=== PATIENT | female | born 1985 | race Two or more races ===

== ENCOUNTER 2018-09-24 05:19 | Emergency (ER) | payer SELFPAY ==
[~2018-09-24] VITALS: Ht 160 cm; Wt 66.7 kg
[2018-09-24 05:26] VITALS: BP 112/59
[2018-09-24] MEDS ORDERED: fentaNYL PF VIAL 100 MCG/2 ML VIAL IV ONE ×2 (05:45→08:00)
[2018-09-24] MEDS ORDERED: LIDO:MAALOX 1:1 20 ML SINGLE DOSE. SWSW ONE (05:45)
[2018-09-24] MEDS ORDERED: IV NORMAL SALINE 1000ML BAG 1,000 ML IV ONE (05:45)
--- NOTE | 2018-09-24 05:47 | PHYS DOC ---
Past Medical History Past Medical History: No Pertinent History (YASMIN BAEZ MD) Alcohol Use: None Drug Use: None (YASMIN BAEZ MD) Adult General Chief Complaint Chief Complaint: ABDOMINAL PAIN HPI HPI Patient is a 33 year old female presents with abdominal pain 24 hours since yesterday morning after eating spicy food for breakfast she's had persistent sharp epigastric pain radiates diffusely to the back and both upper quadrant no fever positive vomiting positive nausea no blood in the vomit she's also been constant pain for 5 days no previous abdominal surgeries. No relief with time. (YASMIN BAEZ MD) Review of Systems Review of Systems Constitutional: Denies fever or chills [] Eyes: Denies change in visual acuity, redness, or eye pain [] HENT: Denies nasal congestion or sore throat [] Respiratory: Denies cough or shortness of breath [] Cardiovascular: No additional information not addressed in HPI [] Neurologic: Denies headache, focal weakness or sensory changes [] Endocrine: Denies polyuria or polydipsia [] All other systems were reviewed and found to be within normal limits, except as documented in this note. (YASMIN BAEZ MD) Current Medications Current Medications Current Medications Medications (Trade) Dose Ordered Sig/Hannah Start Time Stop Time Status Last Admin Dose Admin Fentanyl Citrate (Fentanyl 2ml Vial) 50 mcg 1X ONCE 09/24/18 08:00 09/24/18 08:01 DC 09/24/18 08:35 50 MCG Info (CONTRAST GIVEN -- Rx MONITORING) 1 each PRN DAILY PRN 09/24/18 08:15 09/26/18 08:14 Iohexol (Omnipaque 300 Mg/ml) 75 ml 1X ONCE 09/24/18 08:15 09/24/18 08:16 DC 09/24/18 08:15 75 ML Multi-Ingredient Mouthwash/Gargle (Gi Cocktail) 20 ml 1X ONCE 09/24/18 05:45 09/24/18 06:02 DC 09/24/18 06:00 20 ML Ondansetron HCl (Zofran) 4 mg 1X ONCE 09/24/18 06:00 09/24/18 06:02 DC 09/24/18 06:00 4 MG Sodium Chloride 1,000 ml @ 1,000 mls/hr 1X ONCE 09/24/18 05:45 09/24/18 06:44 DC 09/24/18 05:53 1,000 MLS/HR (PAL RODRIGUEZ DO) Allergies Allergies Allergies Coded Allergies Type Severity Reaction Last Updated Verified No Known Drug Allergies 09/24/18 No (PAL RODRIGUEZ DO) Physical Exam Physical Exam Constitutional: Well developed, well nourished, no acute distress, non-toxic appearance. [] HENT: Normocephalic, atraumatic, bilateral external ears normal, oropharynx moist, no oral exudates, nose normal. [] Eyes: PERRLA, EOMI, conjunctiva normal, no discharge. [] Neck: Normal range of motion, no tenderness, supple, no stridor. [] Pulmonary: Normal respiratory effort no increased work of breathing no obvious chest wall trauma Abdomen: Bowel sounds normal, soft, epigastric and right upper quadrant tenderness noted, no masses, no pulsatile masses. [] Skin: Warm, dry, no erythema, no rash. [] Back: No tenderness, no CVA tenderness. [] Extremities: No tenderness, no cyanosis, no clubbing, ROM intact, no edema. [] Neurologic: Alert and oriented X 3, normal motor function, normal sensory function, no focal deficits noted. [] Psychologic: Affect normal, judgement normal, mood normal. [] (YASMIN BAEZ MD) Current Patient Data Vital Signs Vital Signs Date Time Temp Pulse Resp B/P (MAP) Pulse Ox O2 Delivery O2 Flow Rate FiO2 09/24/18 08:35 18 Room Air 09/24/18 05:26 97.6 63 112/59 (76) 100 97.6 (PAL RODRIGUEZ DO) Lab Values Laboratory Tests Test 09/24/18 05:30 09/24/18 05:32 White Blood Count 7.9 x10^3/uL (4.0-11.0) Red Blood Count 4.72 x10^6/uL (3.50-5.40) Hemoglobin 14.4 g/dL (12.0-15.5) Hematocrit 43.0 % (36.0-47.0) Mean Corpuscular Volume 91 fL (79-100) Mean Corpuscular Hemoglobin 31 pg (25-35) Mean Corpuscular Hemoglobin Concent 34 g/dL (31-37) Red Cell Distribution Width 13.7 % (11.5-14.5) Platelet Count 236 x10^3/uL (140-400) Neutrophils (%) (Auto) 55 % (31-73) Lymphocytes (%) (Auto) 38 % (24-48) Monocytes (%) (Auto) 5 % (0-9) Eosinophils (%) (Auto) 2 % (0-3) Basophils (%) (Auto) 0 % (0-3) Neutrophils # (Auto) 4.4 x10^3uL (1.8-7.7) Lymphocytes # (Auto) 3.0 x10^3/uL (1.0-4.8) Monocytes # (Auto) 0.4 x10^3/uL (0.0-1.1) Eosinophils # (Auto) 0.2 x10^3/uL (0.0-0.7) Basophils # (Auto) 0.0 x10^3/uL (0.0-0.2) Urine Collection Type Unknown Urine Color Yellow Urine Clarity Clear Urine pH 6.0 Urine Specific Blair >=1.030 Urine Protein Negative mg/dL (NEG-TRACE) Urine Glucose (UA) Negative mg/dL (NEG) Urine Ketones (Stick) Negative mg/dL (NEG) Urine Blood Small (NEG) Urine Nitrite Negative (NEG) Urine Bilirubin Negative (NEG) Urine Urobilinogen Dipstick 0.2 mg/dL (0.2 mg/dL) Urine Leukocyte Esterase Moderate (NEG) Urine RBC 0 /HPF (0-2) Urine WBC 11-20 /HPF (0-4) Urine Squamous Epithelial Cells Many /LPF Urine Transitional Epithelial Cells Occ /LPF Urine Renal Epithelial Cells Occ /LPF Urine Bacteria Few /HPF (0-FEW) Urine Mucus Slight /LPF Sodium Level 140 mmol/L (136-145) Potassium Level 3.7 mmol/L (3.5-5.1) Chloride Level 103 mmol/L (98-107) Carbon Dioxide Level 26 mmol/L (21-32) Anion Gap 11 (6-14) Blood Urea Nitrogen 13 mg/dL (7-20) Creatinine 0.5 mg/dL (0.6-1.0) L Estimated GFR (Cockcroft-Gault) 142.1 BUN/Creatinine Ratio 26 (6-20) H Glucose Level 105 mg/dL (70-99) H Calcium Level 8.7 mg/dL (8.5-10.1) Total Bilirubin 0.4 mg/dL (0.2-1.0) Aspartate Amino Transferase (AST) 18 U/L (15-37) Alanine Aminotransferase (ALT) 24 U/L (14-59) Alkaline Phosphatase 66 U/L (46-116) Total Protein 8.0 g/dL (6.4-8.2) Albumin 4.1 g/dL (3.4-5.0) Albumin/Globulin Ratio 1.1 (1.0-1.7) Lipase 213 U/L (73-393) POC Urine HCG, Qualitative Hcg negative (Negative) Laboratory Tests 09/24/18 05:30 Laboratory Tests 09/24/18 05:30 (PAL RODRIGUEZ DO) EKG EKG [] (YASMIN BAEZ MD) Radiology/Procedures Radiology/Procedures [] (YASMIN BAEZ MD) Radiology/Procedures [facility] [address] [place], [place] [id number] IMAGING REPORT Signed PATIENT: LAY SIBLEY ACCOUNT: [id number] : 1985 LOCATION: ER AGE: 33 SEX: F EXAM STATUS: REG ER ORD. PHYSICIAN: PAL RODRIGUEZ DO REASON: ABDOMINAL PAIN PROCEDURE: CT ABD PELV W/ IV CONTRST ONLY CT ABD PELV W/ IV CONTRST ONLY Indication: Abdominal pain and vomiting for one day Technique: Postcontrast CT imaging was performed of the abdomen and pelvis, multiplanar reconstruction images submitted. No oral contrast was given. One or more of the following individualized dose reduction techniques were utilized for this examination: 1. Automated exposure control 2. Adjustment of the mA and/or kV according to patient size 3. Use of iterative reconstruction technique. Comparison: None Findings: There is no abnormality of the limited visualized lung bases. No focal abnormality is identified of the liver, spleen, pancreas, adrenal glands, gallbladder, kidneys. Both kidneys enhance, no hydronephrosis. There is retained stool variably throughout the colon. There is probable visualization of a short segment of normal appendix as seen on axial image 55 although not visualized in its entirety on this exam. There is no free air or significant free fluid. There are probable small right adnexal cysts or dominant follicles, largest about 1.4 cm. IMPRESSION: 1. At least a short segment of the normal appendix is believed to be visualized although not seen in its entirety, no free fluid. There is retained stool variably throughout the colon. There are couple of likely small cysts or dominant follicles of the right ovary. Electronically signed by: Trudy Little MD (09/24/2018 8:46 AM) [facility] DICTATED and SIGNED BY: TRUDY LITTLE MD DATE: 09/24/18 0840 [facility] [address] [place], [place] [id number] IMAGING REPORT Signed PATIENT: LAY SIBLEY ACCOUNT: [id number] : 1985 LOCATION: ER AGE: 33 SEX: F EXAM STATUS: PRE ER ORD. PHYSICIAN: YASMIN BAEZ MD REASON: epig pain, vomiting eval for gallstones PROCEDURE: ABDOMEN LTD CLINICAL HISTORY: epigastric pain COMPARISON: None available. TECHNIQUE: Limited ultrasound examination of the right upper quadrant of the abdomen was performed FINDINGS: Liver: The liver measures 13.5 cm in length in the right mid clavicular line. Hepatic echogenicity is normal and the margin is smooth. There is no focal abnormality of the liver. Portal and hepatic venous flow is confirmed with normal waveforms. Gallbladder/Biliary: The gallbladder is normal in appearance without evidence for cholelithiasis. There is no wall thickening or pericholecystic fluid. There is no pain with direct transducer pressure over the gallbladder.The common bile duct measures 0.3 cm. Visualized pancreas is unremarkable although the distal body and tail are obscured by overlying bowel gas. The right kidney measures 11 cm in bipolar length. No focal renal lesion. No hydronephrosis or hydroureter. There is no free fluid in the subhepatic space. IMPRESSION: Essentially normal sonographic survey of the right upper quadrant. Electronically signed by: Jesus Lane MD (09/24/2018 6:20 AM) [facility] DICTATED and SIGNED BY: JESUS LANE MD DATE: 09/24/18 0614 (PAL RODRIGUEZ DO) Course & Med Decision Making Course & Med Decision Making Pertinent Labs and Imaging studies reviewed. (See chart for details) []Epigastric pain workup in progress signed out to pedro. (YASMIN BAEZ MD) Dragon Disclaimer Dragon Disclaimer This electronic medical record was generated, in whole or in part, using a voice recognition dictation system. (YASMIN BAEZ MD) Departure Departure Impression: Primary Impression: Abdominal pain Additional Impression: Gastritis Disposition: HOME, SELF-CARE Condition: STABLE Patient Instructions: Abdominal Pain, Gastritis, Adult Scripts Omeprazole (OMEPRAZOLE) 20 Mg Capsule. 1 CAP PO DAILY, #30 CAP 5 Refills Prov: PAL RODRIGUEZ DO 09/24/18 Sucralfate (CARAFATE) 1 Gm Tablet 1 TAB PO QID, #56 TAB 1 Refill Prov: PAL RODRIGUEZ DO 09/24/18 Problem Qualifiers YASMIN BAEZ MD Sep 24, 2018 05:47 PAL RODRIGUEZ DO Sep 24, 2018 09:09
[2018-09-24] MEDS ORDERED: ONDANSETRON PF 4 MG/2 ML VIAL. IV ONE (06:00)
[2018-09-24 06:07] LABS: BILIRUBIN,URINE NEGATIVE (NEG); CALCIUM 8.7 mg/dL (8.5-10.1); CLARITY,URINE CLEAR; COLOR,URINE YELLOW; CREATININE 0.5 mg/dL (0.6-1.0); GFR 142.1; NITRITE,URINE NEGATIVE (NEG); POTASSIUM 3.7 mmol/L (3.5-5.1); PROTEIN,URINE NEGATIVE (NEG-TRACE); UROBILINOGEN,URINE 0.2 mg/dL (0.2 mg/dL)
[2018-09-24 06:09] LABS: BASO % 0 % (0-3); EOS # 0.2 x10^3/uL (0.0-0.7); EOS % 2 % (0-3); HEMOGLOBIN 14.4 g/dL (12.0-15.5); LYMPH % 38 % (24-48); MEAN CORPUSCULAR HEMOGLOBIN 31 pg (25-35); MEAN CORPUSCULAR HGB CONC 34 g/dL (31-37); MEAN CORPUSCULAR VOLUME 91 fL (79-100); MONO # 0.4 x10^3/uL (0.0-1.1); MONO % 5 % (0-9); NEUT # 4.4 x10^3uL (1.8-7.7); NEUT % 55 % (31-73); PLATELET COUNT 236 x10^3/uL (140-400); RED BLOOD COUNT 4.72 x10^6/uL (3.50-5.40); RED CELL DISTRIBUTION WIDTH 13.7 % (11.5-14.5); WHITE BLOOD COUNT 7.9 x10^3/uL (4.0-11.0)
[2018-09-24 06:13] LABS: ALBUMIN 4.1 g/dL (3.4-5.0); ALBUMIN/GLOBULIN RATIO 1.1 (1.0-1.7); TOTAL BILIRUBIN 0.4 mg/dL (0.2-1.0)
[2018-09-24 06:17] LABS: SQUAMOUS EPITHELIAL CELL,UR MANY /LPF
[2018-09-24 06:18] LABS: BACTERIA,URINE FEW /HPF (0-FEW); RBC,URINE 0 /HPF (0-2)
--- NOTE | 2018-09-24 06:22 | RAD ---
CLINICAL HISTORY: epigastric pain COMPARISON: None available. TECHNIQUE: Limited ultrasound examination of the right upper quadrant of the abdomen was performed FINDINGS: Liver: The liver measures 13.5 cm in length in the right mid clavicular line. Hepatic echogenicity is normal and the margin is smooth. There is no focal abnormality of the liver. Portal and hepatic venous flow is confirmed with normal waveforms. Gallbladder/Biliary: The gallbladder is normal in appearance without evidence for cholelithiasis. There is no wall thickening or pericholecystic fluid. There is no pain with direct transducer pressure over the gallbladder.The common bile duct measures 0.3 cm. Visualized pancreas is unremarkable although the distal body and tail are obscured by overlying bowel gas. The right kidney measures 11 cm in bipolar length. No focal renal lesion. No hydronephrosis or hydroureter. There is no free fluid in the subhepatic space. IMPRESSION: Essentially normal sonographic survey of the right upper quadrant. Electronically signed by: Jesus Sosa MD (09/24/2018 6:20 AM) [facility]
[2018-09-24] MEDS ORDERED: CONTRAST GIVEN. MC PRN (08:15)
[2018-09-24] MEDS ORDERED: IOHEXOL 300 MG/ML 100ML VIAL. IV ONE (08:15)
--- NOTE | 2018-09-24 08:49 | RAD ---
CT ABD PELV W/ IV CONTRST ONLY Indication: Abdominal pain and vomiting for one day Technique: Postcontrast CT imaging was performed of the abdomen and pelvis, multiplanar reconstruction images submitted. No oral contrast was given. One or more of the following individualized dose reduction techniques were utilized for this examination: 1. Automated exposure control 2. Adjustment of the mA and/or kV according to patient size 3. Use of iterative reconstruction technique. Comparison: None Findings: There is no abnormality of the limited visualized lung bases. No focal abnormality is identified of the liver, spleen, pancreas, adrenal glands, gallbladder, kidneys. Both kidneys enhance, no hydronephrosis. There is retained stool variably throughout the colon. There is probable visualization of a short segment of normal appendix as seen on axial image 55 although not visualized in its entirety on this exam. There is no free air or significant free fluid. There are probable small right adnexal cysts or dominant follicles, largest about 1.4 cm. IMPRESSION: 1. At least a short segment of the normal appendix is believed to be visualized although not seen in its entirety, no free fluid. There is retained stool variably throughout the colon. There are couple of likely small cysts or dominant follicles of the right ovary. Electronically signed by: Clovis Ledezma MD (09/24/2018 8:46 AM) [id number]
[2018-09-24] MEDS ORDERED: SUCR1TAB35 PO (09:15)
[2018-09-24] MEDS ORDERED: OMEP20CA10 PO (09:15)
== END 2018-09-24 09:45 | disposition home or self-care (01) ==
LOC: ER 05:19
DX: K29.60 Other gastritis without bleeding (principal); R11.2 Nausea with vomiting, unspecified
CPT/HCPCS: 36415; 74177; 76705; 80053; 81001; 81025; 83690; 85025; 87086; 96361; 96374; 96375; 96376; 99284; J2405; J3010; J7030; Q9967